=== PATIENT | female | born 1970 | race Caucasian/White ===

== ENCOUNTER → 2017-08-21 | Outpatient (CLI) | payer BC, OTHER ==
--- NOTE | 2017-08-21 12:22 | BD ---
EXAMINATION TYPE: MG DEXA axial skeleton. DATE OF EXAM: 08/21/2017 CLINICAL HISTORY: : no Height: 66 inches Weight: 129.4 FRAX RISK QUESTIONS: Alcohol (3 or more units per day): no Family History (Parent hip fracture): yes, father Glucocorticoids (More than 3mos): no (Ex: prednisone, prednisolone, methylprednisolone, dexamethasone, and hydrocortisone). History of Fracture in Adulthood: rib, coccyx Secondary Osteoporosis: 1. Type 1 Diabetes: no 2. Hyperthyroidism: no 3. Menopause before 45: n/a 4. Malnutrition: no 5. Chronic liver disease: no Rheumatoid Arthritis: no Current Tobacco Use: no RISK FACTORS HISTORY OF: Family History of Osteoporosis: yes Active: yes Diet low in dairy products/other sources of calcium: allergy to dairy Postmenopausal woman: no Take estrogen and/or progesterone medications: yes How long: over 20 years Lost more than 2 inches in height since high school: no Frequent falls: no Poor Health: no Hyperparathyroidism: no Adrenal Insufficiency: no MEDICATIONS: Prednisone or other steroids: no Thyroid Medications: no Osteoporosis Medications: no EXAM MEASUREMENTS: Bone mineral densitometry was performed using the sailsquare System. Bone mineral density as measured about the Lumbar spine is: ----- L1-L4(G/cm2): 1.069 T Score Values are as follows: ----- L2: -0.7 ----- L3: -0.9 ----- L4: -1.5 ----- L1-L4: -0.9 Bone mineral density has: Decreased -3.2% since study of: 06/24/2015 Bone mineral density about the R hip (g/cm2): 0.671 Bone mineral density about the L hip (g/cm2): 0.713 T Score values are as follows: -----R Neck: -2.6 -----L Neck: -2.3 -----R Total: -2.3 -----L Total: -1.8 Bone mineral density has: Decreased -1.2% since study of: 06/24/2015 IMPRESSION: Osteopenia about the bilateral femora. NOTE: T-SCORE=SD OF THE YOUNG ADULT MEAN.
--- NOTE | 2017-08-22 11:01 | MM ---
Reason for exam: screening (asymptomatic). Last mammogram was performed 1 year and 2 months ago. History: Taking hormonal contraceptives for 20 years beginning at age 25. Physical Findings: A clinical breast exam by your physician is recommended on an annual basis and results should be correlated with mammographic findings. MG 3D Screening Mammo W/Cad Bilateral CC and MLO view(s) were taken. Prior study comparison: June 27, 2016, bilateral MG 3d diag mammo w/cad [facility]. June 24, 2015, bilateral MG 3d screening mammo w/cad. The breast tissue is heterogeneously dense. This may lower the sensitivity of mammography. Finding: There are typically benign round, regional calcifications in both breasts. There is no discrete abnormality. ASSESSMENT: Benign, BI-RAD 2 RECOMMENDATION: Routine screening mammogram of both breasts in 1 year.
== END | disposition home or self-care (01) ==
LOC: RADMAMWWP 08:19
PROVIDERS: ATTEND Obstetrics & Gynecology
DX: Z12.31 Encounter for screening mammogram for malignant neoplasm of breast (principal); M85.851 Other specified disorders of bone density and structure, right thigh; M85.852 Other specified disorders of bone density and structure, left thigh
CPT/HCPCS: 77063; 77067; 77080

== ENCOUNTER → 2018-11-14 | Outpatient (CLI) | payer OTHER ==
--- NOTE | 2018-11-15 12:22 | MM ---
Reason for exam: screening (asymptomatic). Last mammogram was performed 1 year and 3 months ago. History: Taking hormonal contraceptives for 20 years beginning at age 25. Physical Findings: A clinical breast exam by your physician is recommended on an annual basis and results should be correlated with mammographic findings. MG 3D Screening Mammo W/Cad Bilateral CC and MLO view(s) were taken. Prior study comparison: August 21, 2017, bilateral MG 3d screening mammo w/cad. June 27, 2016, bilateral MG 3d diag mammo w/cad [facility]. The breast tissue is heterogeneously dense. This may lower the sensitivity of mammography. There is no discrete abnormality. No significant changes when compared with prior studies. ASSESSMENT: Negative, BI-RAD 1 RECOMMENDATION: Routine screening mammogram of both breasts in 1 year.
== END | disposition home or self-care (01) ==
LOC: RADMAMWWP 10:08
PROVIDERS: ATTEND Obstetrics & Gynecology
DX: Z12.31 Encounter for screening mammogram for malignant neoplasm of breast (principal)
CPT/HCPCS: 77063; 77067

== ENCOUNTER → 2018-12-30 | Outpatient (CLI) | payer OTHER ==
--- NOTE | 2018-12-30 10:18 | CT ---
EXAMINATION TYPE: CT soft tissue neck w con DATE OF EXAM: 12/30/2018 HISTORY: Rt neck swelling COMPARISON: NONE CT DLP: 288 mGycm. Automated Exposure Control for Dose Reduction was Utilized. TECHNIQUE: CT scan of the neck is performed with IV Contrast, patient injected with 100 mL of Isovue 300, axial images are obtained, coronal and sagittal reformatted images are reviewed. FINDINGS: Airway: An azygos lobe/fissure is incidentally noted. Parotid/submandibular glands: No gross abnormality seen. Carotid/Vascular Structures: No significant plaque or stenosis at carotid bulb level bilaterally. Cod ominant vertebral basilar system. Osseous Structures: Slight scoliotic curvature. Other: There are prominent but subcentimeter lymph nodes throughout the neck bilaterally. For referen ce left submandibular and posterior cervical triangle lymph node sagittal image 52 with similar-appea ring lymph nodes noted right neck near sagittal image 27 near site of BB placed axial image 55. Large st measured lymph node adjacent to right internal jugular vein measures 1.2 x 0.5 cm axial image 54. At site near BB just inferiorly there is prominent but subcentimeter posterior cervical lymph node me asuring 6 x 4 mm axial image 52. IMPRESSION: Prominent but subcentimeter likely benign lymph nodes throughout the neck bilaterally. No definitive greater than 1 cm suspicious lymph nodes are seen.
== END | disposition home or self-care (01) ==
LOC: RADCTMAIN 07:03
PROVIDERS: ATTEND Family Medicine
DX: R59.0 Localized enlarged lymph nodes (principal)
CPT/HCPCS: 70491; Q9967

== ENCOUNTER → 2019-06-19 | Outpatient (CLI) | payer OTHER ==
--- NOTE | 2019-06-19 10:48 | USB ---
Reason for exam: clinical finding. History: Taking hormonal contraceptives for 20 years beginning at age 25. Physical Findings: Nurse did not find any significant physical abnormalities on exam. US Breast RT Technologist: Carolina Dickinson Right limited breast ultrasound including focal area of concern, retroareolar and axilla demonstrates a 0.3 x 0.4 x 0.2cm cystic lesion at 12 o'clock. Scattered areas of dense breast tissue. These results were verbally communicated with the patient and result sheet given to the patient on 06/19/19. ASSESSMENT: Benign, BI-RAD 2 RECOMMENDATION: Return to routine screening mammogram schedule for both breasts. Back on schedule for November 2019.
== END | disposition home or self-care (01) ==
LOC: RADUSWWP 08:59
PROVIDERS: ATTEND Obstetrics & Gynecology
DX: N63.10 Unspecified lump in the right breast, unspecified quadrant (principal)

== ENCOUNTER → 2025-01-14 | Outpatient (CLI) | payer BC ==
--- NOTE | 2025-01-20 07:42 | MM ---
Reason for Exam: Screening (asymptomatic). Last mammogram was performed 1 year(s) and 3 month(s) ago. Patient History: Menarche at age 17. First Full-Term at age 28. Hormonal Contraceptives, starting at age 25 for 20 years. Risk Values: Rabia 5 year model risk: 1.2%. NCI Lifetime model risk: 8.5%. Prior Study Comparison: 06/27/2016 Bilateral Diagnostic Mammogram, [facility]. 08/21/2017 Bilateral Screening Mammogram, [facility]. 11/14/2018 Bilateral Screening Mammogram, [facility]. 09/11/2022 Bilateral Screening Mammogram, [facility]. 10/23/2023 Bilateral Screening Mammogram, [facility]. Tissue Density: The breasts are heterogeneously dense, which may obscure small masses. Findings: Analyzed By CAD. Mammotome biopsy clip in the right breast is present. There is occasional tiny benign round calcification bilaterally. There is no suspicious new group of microcalcifications or new suspicious mass in either breast. Overall Assessment: Benign, BI-RAD 2 Management: Screening Mammogram of both breasts in 1 year. . Patient should continue monthly self-breast exams. A clinical breast exam by your physician is recommended on an annual basis. This exam should not preclude additional follow-up of suspicious palpable abnormalities. Note on Rabia scores and lifetime risk: 1. A Rabia score greater than 3% is considered moderate risk. If this is the case, consider specialist referral to assess eligibility for a risk reducing agent. 2. If overall lifetime risk for the development of breast cancer is 20% or higher, the patient may qualify for future screening with alternating mammogram and breast MRI. [facility], , 01/20/2025 7:39 AM. Electronically signed and approved by: Giovanny Ji M.D.
== END | disposition home or self-care (01) ==
LOC: RADMAMWWP 15:46
PROVIDERS: ATTEND Obstetrics & Gynecology
DX: Z12.31 Encounter for screening mammogram for malignant neoplasm of breast (principal); R92.333 Mammographic heterogeneous density, bilateral breasts; R92.1 Mammographic calcification found on diagnostic imaging of breast; Z92.0 Personal history of contraception
CPT/HCPCS: 77063; 77067